=== PATIENT | female | born 2000 | race Caucasian/White ===

== ENCOUNTER 2019-11-30 14:54 | Emergency (ER) | payer SELFPAY ==
--- NOTE | 2019-11-30 15:06 | XRR_ITS ---
PROCEDURE INFORMATION: Exam: XR Chest, 1 View Exam date and time: 11/30/2019 3:07 PM Age: 19 years old Clinical indication: Cough; Additional info: Cough/congestion x 3 weeks TECHNIQUE: Imaging protocol: XR of the chest Views: 1 view. COMPARISON: CR Chest 2 views* [id number] 04/26/2017 4:30 PM FINDINGS: Lungs: Unremarkable. No consolidation. Pleural space: Unremarkable. No pleural effusion. No pneumothorax. Heart/Mediastinum: Unremarkable. No cardiomegaly. Bones/joints: Unremarkable. XR/XR chest 1V portable [id number] IMPRESSION: No acute findings.
--- NOTE | 2019-11-30 15:06 | ECG_ITS ---
Measurements Intervals [place] Rate: 82 P: 80 KS: 138 QRS: 80 QRSD: 89 T: 66 QT: 349 QTc: 409 SINUS RHYTHM WITH SINUS ARRHYTHMIA No previous ECG available for comparison Electronically Signed On 12-01-2019 14:11:42 CEMENTING BULK MATERIAL OPERATOR by Nurys Keene M.D. [email or web address]
[2019-11-30 15:55] VITALS: BP 124/84; PULSE 102; RESP 16; TEMP 36.8; O2SAT 99; BMI 16.5
[2019-11-30 18:44] LABS: Amphetamines Screen Urine Negative (Negative); Barbiturates Screen Urine Negative (Negative); Benzodiazepines Screen Urine Negative (Negative); Cocaine Screen Urine Negative (Negative); Opiate Screen Urine Negative (Negative); PCP Screen Urine Negative (Negative); THC Screen Urine Positive (Negative)
== END 2019-11-30 21:15 | disposition left against medical advice (07) ==
LOC: ER 16:38
PROVIDERS: Physician Assistant; Emergency Provider Family Medicine
DX: Z53.21 Procedure and treatment not carried out due to patient leaving prior to being seen by health care provider (principal)
CPT/HCPCS: 71045; 80307; 93005; 99281

== ENCOUNTER 2020-12-19 23:24 | Emergency (ER) | payer SELFPAY ==
[2020-12-19 23:30] VITALS: BP 113/87; PULSE 102; RESP 18; TEMP 36.8; O2SAT 98; BMI 19.5
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
[2020-12-20 01:04] VITALS: BP 100/85; PULSE 102; RESP 18; O2SAT 94
== END 2020-12-20 01:03 | disposition home or self-care (01) ==
PROVIDERS: Emergency Provider Emergency Medicine
DX: S09.8XXA Other specified injuries of head, initial encounter (principal); F17.210 Nicotine dependence, cigarettes, uncomplicated; Y04.2XXA Assault by strike against or bumped into by another person, initial encounter
CPT/HCPCS: 12345; 70450; 99281; 99282

== ENCOUNTER 2021-04-10 09:27 | Emergency (ER) | payer SELFPAY ==
[2021-04-10 10:04] VITALS: BP 135/77; PULSE 133; RESP 18; TEMP 36.2; O2SAT 95; BMI 17.2
[2021-04-10 10:31] LABS: Add Urine Microscopic? YES; Bilirubin Urine Neg (Negative); Blood Urine Neg (Negative); Glucose Urine UA Norm (Normal); Ketones Urine Negative (Negative); Leukocyte Esterase Urine 2+ (Negative); Nitrate Urine Negative (Negative); Protein Urine Neg (Negative); Specific Gravity, Urine 1.005 (1.005-1.030); Urine Appearance SL Hazy (CLEAR); Urine Color Yellow (Yellow); Urobilinogen Urine Norm (Negative); pH Urine 5 (5-7)
[2021-04-10 10:38] LABS: Bacteria Urine 4+ /hpf; RBC Urine 0-4 /hpf (0-2); Squamous Epithelial Cell Urine 0-4 /hpf (0-5); WBC Urine 15-25 /hpf (0-5)
[2021-04-10 10:39] LABS: Add Urine Culture? Yes
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
[2021-04-10 11:25] LABS: Glucose Point of Care 105 mg/dL (70-110)
[2021-04-10] MEDS: sodium chloride 0.9% 1,000 ML 999 ML IV (11:37)
[2021-04-10] MEDS: ondansetron 2 mg/ML SDV 2 mL 4 MG IVP (11:37)
[2021-04-10 11:39] VITALS: BP 136/84; PULSE 89; O2SAT 98
[2021-04-10 11:41] LABS: Basophils # 0.1 10^3/uL (0.0-0.1); Basophils % 0.6 %; Eosinophils % 0.2 %; Hematocrit 42.2 % (37.0-47.0); Hemoglobin 14.3 g/dL (11.5-15.3); Lymphocytes # 2.2 10^3/uL (0.8-4.8); Mean Corpuscular HGB Conc 33.9 g/dL (30.0-36.0); Mean Corpuscular Hemoglobin 30.6 pg (28.0-34.0); Mean Corpuscular Volume 90.2 fL (81-99); Mean Platelet Volume 9.6 fL (7.4-10.4); Neutrophils % 71.9 %; Nucleated Red Blood Cells % 0 %; Platelet Count 340 10^3/cmm (130-400); Red Blood Count 4.68 10^6/uL (4.1-5.3); White Blood Count 11.8 10^3/uL (4.0-10.0)
[2021-04-10 11:52] LABS: HCG, Serum Qual Positive (Negative)
[2021-04-10 11:57] LABS: Lactic Sepsis W/Reflex 3.6 mmol/L (0.5-2.2)
[2021-04-10 12:00] VITALS: BP 134/101; PULSE 125; RESP 18; O2SAT 94
[2021-04-10 12:01] LABS: Alanine Aminotransferase 15 U/L (0-33); Albumin Level 4.6 g/dL (3.5-5.2); Alkaline Phosphatase 54 IU/L (35-105); Anion Gap 18.7 (5-19); Aspartate Amino Transferase 17 U/L (0-32); Blood Urea Nitrogen 8 mg/dL (6-20); Calcium 8.6 mg/dL (8.5-10.5); Carbon Dioxide 23 mmol/L (22-29); Chloride 101 mmol/L (98-107); Globulin 3.2 g/dL (1.3-4.6); Glomerular Filtration Rate 155.7 mL/min (90-130); Glucose 96 mg/dL (65-115); Osmolality Calculated 286 mOsm/kg (285-295); Potassium 3.7 mmol/L (3.5-5.1); Sodium 139 mmol/L (136-145); Total Bilirubin 0.3 mg/dL (0.15-1.2); Total Protein 7.8 g/dL (6.6-8.7)
[2021-04-10 13:00] VITALS: BP 133/77; PULSE 132; RESP 20; O2SAT 98
[2021-04-10 13:18] LABS: Lactic Sepsis W/Reflex 3.4 mmol/L (0.5-2.2)
[2021-04-10 13:24] LABS: Reflex Lactate Order REFLEX LACTIC ORDERD
[2021-04-10 14:00] VITALS: BP 123/45; PULSE 101; O2SAT 97
[2021-04-10 14:43] LABS: Reflex Lactate Order REFLEX LACTIC ORDERD
--- NOTE | 2021-04-11 14:12 | DCPLANNER ---
manager respiratory had message to speak with patient about services at [facility]. manager respiratory called phone number [phone], unable to speak with patient at this time, a voicemail was left for patient to return corrections caseworker phone call.
== END 2021-04-10 13:53 | disposition home or self-care (01) ==
PROVIDERS: Emergency Provider Physician Assistant
DX: O23.41 Unspecified infection of urinary tract in pregnancy, first trimester (principal); Z3A.01 Less than 8 weeks gestation of pregnancy; O26.891 Other specified pregnancy related conditions, first trimester; R45.86 Emotional lability; O99.331 Smoking (tobacco) complicating pregnancy, first trimester; F17.290 Nicotine dependence, other tobacco product, uncomplicated
CPT/HCPCS: 36416; 80053; 81001; 82962; 83605; 84702; 84703; 85025; 87077; 87086; 87186; 87491; 87591; 96361; 96374; 99284; J2405; J7030

== ENCOUNTER 2021-12-03 16:56 | Inpatient (IN) | payer MEDICAID, SELFPAY ==
[2021-12-03] VITALS (47 sets, daily range): BP systolic 102–150; BP diastolic 56–100; PULSE 53–104; RESP 16–17; TEMP 36.2–37.4; BMI 23.0
[2021-12-03 12:30] LABS: Basophils % 0.4 %; Eosinophils # 0.2 10^3/uL (0.0-0.8); Eosinophils % 2.4 %; Hematocrit 32.5 % (37.0-47.0); Hemoglobin 10.7 g/dL (11.5-15.3); Lymphocytes # 1.1 10^3/uL (0.8-4.8); Mean Corpuscular HGB Conc 32.9 g/dL (30.0-36.0); Mean Corpuscular Hemoglobin 26.6 pg (28.0-34.0); Mean Corpuscular Volume 80.8 fl (81-99); Monocytes # 0.9 10^3/uL (0.2-0.9); Monocytes % 11.7 %; Neutrophils % 69.7 %; Nucleated Red Blood Cells % 0 %; Platelet Count 309 10^3/cmm (130-400); Red Blood Count 4.02 10^6/uL (4.1-5.3); Red Cell Distribution Width 13.3 % (12.1-15.1); White Blood Count 7.6 10^3/uL (4.0-10.0)
[2021-12-03] MEDS: fentaNYL 50 mcg/mL INJ 2mL IVP (13:04)
[2021-12-03] MEDS: ondansetron 2 mg/ML SDV 2 mL 4 MG IVP (13:04)
[2021-12-03 14:01] LABS: Amphetamines Screen Urine Negative (Negative); Barbiturates Screen Urine Negative (Negative); Benzodiazepines Screen Urine Negative (Negative); Cocaine Screen Urine Negative (Negative); Opiate Screen Urine Negative (Negative); PCP Screen Urine Negative (Negative); THC Screen Urine Positive (Negative)
--- NOTE | 2021-12-03 14:21 | P.ANESASSM_ITS ---
Pre-Anesthetic Assessment Pre-Anesthetic Assessment: Height/Weight: Height 1.6 m Weight 58.967 kg Resp 17 12/03/21 13:04 Familial anesthetic complications: None Was Beta Jean Carlos taken within 24 hours: N/A Was Clonidine taken within 24 hours: N/A Last intake: Full stomach Social: Social History: Tobacco Exam: Pre-Anes Outpt Exam: alert, oriented x 3, clear to auscultation bilatera lly and regular rate & rhythm Airway: Submandibular: WNL Cervical ROM: WNL MP: 1 Dentition: Chipped Pulmonary: Pulmonary: None reported CV/HEM: CV/HEM: None reported : : None reported Hepatic: Hepatic: None reported GI: GI: None reported Metabolic: Metabolic: None reported Musc/skel: Musc/skel: None reported Neuropsych: Neuropsych: None reported Anesthetic Plan: ASA status: 2 Anesthesia: Anesthesia Evaluation and Regional (specify below) Other: We discussed risk of hypotension, back pain bruising, PDPH, catastrophic nerve injury including paralysis, infection, bleeding. Patient consenst to labor epidural. Risk of > 500 ml blood loss (7ml/kg in children): No Meds/Allergies Current Medications: Current Medications Generic Name Dose Route Start Last Admin Trade Name Freq PRN Reason Stop Dose Admin Fentanyl 25 - 100 mcg 12/03/21 11:37 12/03/21 13:04 Fentanyl 50 Mcg/ Ml Inj 2ml IVP 25 mcg Q1H PRN Administration SEVERE PAIN Ondansetron HCl 4 mg 12/03/21 11:37 12/03/21 13:04 Ondansetron 2 Mg /Ml Sdv 2 Ml IVP 4 mg Q4H PRN Administration NAUSEA AND VOMITI NG PFSH Anesthesia PFSH: Social History Smoking and tobacco status: current every day smoker e-cigarettes Alcohol intake: current Alcohol intake frequency: 0-2 Drinks per Day Female Reproductive History: Date of last menstrual period: 03/06/21 : 2 Data Anesthesia CBC & Chem 7: 12/03/21 11:33 Other Labs: Laboratory Results - last 48 hr 12/03/21 12/03/21 11:33 11:55 WBC 7.6 RBC 4.02 L Hgb 10.7 L Hct 32.5 L MCV 80.8 L MCH 26.6 L MCHC 32.9 RDW 13.3 Plt Count 309 MPV 11.0 H Neut % (Auto) 69.7 Lymph % (Auto) 15.0 [place] % (Auto) 11.7 Eos % (Auto) 2.4 Baso % (Auto) 0.4 Neut # (Auto) 5.30 Lymph # (Auto) 1.1 [place] # (Auto) 0.9 Eos # (Auto) 0.2 Baso # (Auto) 0.0 Nucleated RBC % (auto) 0 Nucleated RBCs # 0.0 Urine Opiates Screen Negative Ur Barbiturates Screen Negative Ur Phencyclidine Scrn Negative Ur Amphetamines Screen Negative U Benzodiazepines Scrn Negative Urine Cocaine Screen Negative U Marijuana (THC) Screen Positive H Cardiac Studies: No Data to Display
--- NOTE | 2021-12-03 14:55 | ANES.PROC ---
Anesthesia Procedures Procedure/Date: 12/03/21 Epidural: Time Out Performed: Yes ([id number]) Consents Signed: Procedure Consent Consent: from patient Lumbar Level: L4-L5 Epidural position: sitting Epidural procedure: sterile prep of area (Chloraprep), 1% lidocaine to numb the area, 18 g needle, negative for paresthesia passed, neg for paresthesia, test dose given, 1.5% xylocaine 1:200k epi, placed PCEA, no systemic response, sterile dressing applied and 0.2% Ropiavacaine @ mls/hr (12 ml/hour) Additional Comments: After informed consent, patient sat up, time out. Skin prepped and draped in usual fashion. Skin wheel w/ LA, Tuohy w/ stylet ligament engaged, JAROCHO w/ saline, loss at 4 cm. Stylet removed, catheter threaded to 10 cm. Negative aspiration, negative test dose. Good block, tolerated well. 0.2% ropivacaine started at 13 ml/hour.
[2021-12-03] MEDS: dextrose 5%-lactated ringers 1,000 ML 125 ML IV (15:01)
--- NOTE | 2021-12-03 16:24 | PM.OPHPUD ---
Labor & Delivery H&P Update Date of Procedure: December 03, 2021 Date H&P Performed: 12/03/21 Admission Diagnosis: Active labor Related Problem List Diagnoses (1) with 39 completed weeks gestation: (2) Active labor at term:
--- NOTE | 2021-12-03 16:25 | P.PN_ITS ---
SOFTWARE IMPLEMENTATION SPECIALIST Subjective Subjective: Interval history: The patient is feeling some pressure but she is much more comfortable with the epidural. This has been in place for approximately an hour. Labor: Station: 0 Amniotic Membrane Status: Bulging Vitals/I&O/Wt Last Vital Signs Temp 99.0 F 12/03/21 16:18 Pulse 61 12/03/21 16:14 Resp 17 12/03/21 13:04 BP 108/56 12/03/21 16:14 Weight last 48 hrs Weight 58.967 kg Physical Exam Narrative: EXAM NARRATIVE: SVE 6 cm 100%effaced 0 station. AROM performed with clear fluid. Urinary Catheter Management^: Chen: Cath Placed During This Visit: yes Urinary Catheter Date of Insertion: 12/03/21 Urinary Catheter Time of Insertion: 15:15 Data : 12/03/21 11:33 A&P Assessment and plan (1) Active labor at term: Continue expectant management Status: Acute (2) with 39 completed weeks gestation: Status: Acute Attestations Medical Necessity Statement*: Active labor with expectant managment Coding Level of Care Code Acute Front End Specialist for Chg Fwd Diagnoses Active labor at term with 39 completed weeks gestation Z3A.39
[2021-12-03 16:30] LABS: Adenovirus Not Detected (NOT DETECT); Chlamydia Pneumoniae Not Detected (NOT DETECT); Coronavirus 229E,HKU1,NL63,OC4 Not Detected (NOT DETECT); Human Metapneumovirus Not Detected (NOT DETECT); Human Rhinovirus/Enterovirus Not Detected (NOT DETECT); Influenza A Not Detected (NOT DETECT); Influenza A H1 Not Detected (NOT DETECT); Influenza A H1-2009 Not Detected (NOT DETECT); Influenza A H3 Not Detected (NOT DETECT); Influenza B Not Detected (NOT DETECT); Mycoplasma Pneumoniae Not Detected (NOT DETECT); Parainfluenza Virus Type 1 Not Detected (NOT DETECT); Parainfluenza Virus Type 2 Not Detected (NOT DETECT); Parainfluenza Virus Type 3 Not Detected (NOT DETECT); Parainfluenza Virus Type 4 Not Detected (NOT DETECT); Respiratory Syncytial Virus A Not Detected (NOT DETECT); Respiratory Syncytial Virus B Not Detected (NOT DETECT); SARS-COV-2 Detected (NOT DETECT)
--- NOTE | 2021-12-03 17:00 | PM.MISC ---
Miscellaneous Note Purpose of Documentation: Evaluation of epidural Note: Called to bedside for leaking epidural. At bedside epidural leaking around clamshell connector. In line epidural pump filter left in place, epidural yellow filter removed, w/ sterile technique epidural catheter re affixed w/in clamshell connector. Patient having significant discomfort from urinary cathete and right sided pain. Epidural catheter bolused off pump 10 cc.. Patient checked. +1 and 6 and 100%
[2021-12-03] MEDS: oxytocin 30 UNIT/500 ML BAG 500 UNIT IV (19:34)
--- NOTE | 2021-12-03 19:53 | PM.DELIVERY ---
Delivery Note: Date of delivery: December 03, 2021 Pre-Delivery Course: She had routine care at [facility]. She did have marijuana use during and is positive on today's drug screen. There were no other complications during the . Delivery: This is a 21-year-old G2, P1 at 39 weeks 0 days gestation who presented to labor and delivery in active labor. She received an epidural for pain management. She had artificial rupture of membranes with clear fluid. She was GBS negative. Rupture membranes was approximately 3 hours prior to delivery. She had a normal spontaneous vaginal delivery of a viable male infant weight 3120 g, 6 pounds 14 ounces over an intact perineum. The infant was suctioned at delivery and placed on the mother's chest. The cord was clamped and cut. The placenta was delivered grossly intact and normal to inspection. There were no lacerations. Estimated blood loss 150 mL. Mother and were doing well after delivery. A&P Assessment and plan (1) Normal spontaneous vaginal delivery: Routine care Status: Acute (2) Lab test positive for detection of COVID-19 virus: The patient's COVID screening test today is positive. She has been placed on contact precautions. Status: Acute Coding Level of Care Code Acute Marshmallow Runner [facility] Diagnoses Normal spontaneous vaginal delivery O80 Lab test positive for detection of COVID-19 virus U07.1
[2021-12-03] MEDS: ibuprofen 800 mg tablet PO (21:47)
[2021-12-03] MEDS: lanolin oint 7 gm 1 APPLIC TOPICAL (21:48)
[2021-12-03] MEDS: benzocaine-menthol 78 gm Canister 1 SPRAY TOPICAL (21:48)
[2021-12-04] VITALS (10 sets, daily range): BP systolic 114–135; BP diastolic 57–82; PULSE 49–71; TEMP 36.2–37.2
[2021-12-04 08:40] LABS: Hematocrit 28.9 % (37.0-47.0); Hemoglobin 9.3 g/dL (11.5-15.3); Mean Corpuscular HGB Conc 32.2 g/dL (30.0-36.0); Mean Corpuscular Hemoglobin 25.9 pg (28.0-34.0); Mean Corpuscular Volume 80.5 fl (81-99); Platelet Count 246 10^3/cmm (130-400); Red Blood Count 3.59 10^6/uL (4.1-5.3); Red Cell Distribution Width 13.3 % (12.1-15.1); White Blood Count 11.2 10^3/uL (4.0-10.0)
[2021-12-04] MEDS: prenatal vitamin Capsule 1 CAP PO (10:23)
[2021-12-04] MEDS: ibuprofen 800 mg tablet PO ×2 (10:23→15:12)
[2021-12-04] MEDS: docusate sodium 100 mg Capsule PO (10:23)
--- NOTE | 2021-12-04 14:05 | ANE.PACU2 ---
Inpatient post-anesthesia follow up: Airway intact: Yes Vital signs: Temperature 98.2 F Pulse Rate 71 Respiratory Rate 16 Blood Pressure 118/77 Pulse Oximetry Oxygen Delivery Me thod Room Air Oxygen Flow Rate Fraction of Inspir ed Oxygen Hydration adequate: Yes Nausea and vomiting: No Pain level: 2 Mental status: Baseline
--- NOTE | 2021-12-04 18:36 | P.DS_ITS ---
Discharge Providers TITLE COORDINATOR Date of Admission: 12/03/21 16:56 Date of Discharge: 12/04/21 Attending Provider at Admission: Erin Berkowitz MD Attending Provider at Discharge: Erin Berkowitz MD Diagnoses at Discharge Discharge Diagnosis (1) Normal spontaneous vaginal delivery: Status: Acute (2) Lab test positive for detection of COVID-19 virus: Status: Acute Reason for Visit Reason for Visit: labor Hospital Course Hospital Course This is a 21-year-old G2 now P2 who was admitted to labor and delivery in active labor. She had a term normal male infant. After delivery mother did well. She was ambulating, tolerating a regular diet, had average vaginal bleeding and was comfortable with discharge home. Information Peripartum Data: Infant Delivery Method: Vaginal Physical Exam Narrative: EXAM NARRATIVE: Alert and oriented, sitting up in bedside chair, lungs clear to auscultation, heart regular rate and rhythm, abdomen soft, fundus firm and nontender, no extremity tenderness, no extremity edema. Urinary Catheter Management^: Chen: Cath Placed During This Visit: yes, but has since been removed by the nurse Reason for Continuing Indwelling Catheter: Decision to DC Catheter Urinary Catheter Date of Insertion: 12/03/21 Urinary Catheter Time of Insertion: 15:15 Date Urinary Catheter Removed: 12/03/21 Time Urinary Catheter Discontinued: 19:15 Discharge Data Data Completed and Pending: Labs from last 24 hours 12/04/21 07:45 WBC 11.2 H RBC 3.59 L Hgb 9.3 L Hct 28.9 L MCV 80.5 L MCH 25.9 L MCHC 32.2 RDW 13.3 Plt Count 246 MPV 11.0 H Vitals: Last Vital Signs Temp 97.9 F 12/04/21 15:15 Pulse 60 12/04/21 15:15 Resp 16 12/03/21 20:20 BP 122/81 12/04/21 15:15 Discharge Plan Discharge Patient Disposition: Home Condition: Stable Discharge Orders: Discharge Order (Routine); Ordered 12/04/21 Ordered By: Erin Berkowitz Referrals: Erin Berkowitz MD [Physician] - 1 month Discharge Diet: Usual diet Discharge Activity: Limit activity as instructed Patient Instructions: Depression (DC), Bleeding (DC), Preeclampsia and Eclampsia After Delivery (GEN), Vaginal Delivery (DC), Hemorrhage (DC), OB Discharge Report, OB Food/Drug Interaction Guide, Opioid Safety, OB Home Care, OB Proud Parent Packet Discharge Attestations TITLE COORDINATOR Time Spent in Discharge Care*: less than 30 min Coding Level of Care Code Acute Clinical Haematologist for Chg Fwd Diagnoses Normal spontaneous vaginal delivery O80 Lab test positive for detection of COVID-19 virus U07.1
== END 2021-12-04 20:42 | disposition home or self-care (01) | DRG 805 ==
LOC: OBGYN 16:57
PROVIDERS: Admitting Provider Family Medicine; Visit Provider Family Medicine
DX: O98.52 Other viral diseases complicating childbirth (principal); U07.1 COVID-19; Z37.0 Single live birth; Z3A.39 39 weeks gestation of pregnancy
CPT/HCPCS: 36415; 51702; 59409; 80306; 85025; 85027; 87635; J2405; J2795; J3010

== ENCOUNTER 2022-02-18 04:39 | Emergency (ER) | payer MEDICAID, SELFPAY ==
[2022-02-18 05:03] VITALS: RESP 20; TEMP 36.8; BMI 21.2
--- NOTE | 2022-02-18 05:12 | ED_ITS ---
HPI - General Adult General: Chief complaint: General Medical Stated complaint: n/v Time Seen by Provider: 02/18/22 04:44 Source: patient Mode of arrival: ambulatory Limitations: no limitations History of Present Illness: 21-year-old female states that she has had nausea vomiting over the last 12 hours. States she had multiple episodes of vomiting states she is not really able to keep anything down. She denies any diarrhea states she has some abdominal cramping denies any abdominal pain she denies any fevers. Denies any worsening improving factors. Associated symptoms: Reports nausea and vomiting; Deny chest pain, dyspnea, headache(s) or rash Review of Systems Const: Denies: fever(s), chills, body aches or change in appetite Eyes: Denies: blurry vision or eye discomfort ENMT: Denies: throat pain or dental pain Card: Denies: chest pain Resp: Denies: dyspnea GI: Reports: nausea and vomiting : Denies: dysuria Musc: Denies: neck pain or back pain Skin/Breast: Denies: rash Neuro: Denies: headache(s) Psych: Denies: depression Girish/Lymph: Denies: easy bruising All/Imm: Denies: urticaria PFSH ED PFSH: Medical History (Updated 02/18/22 @ 05:47 by Charisse Boyd MD) No pertinent past medical history Social History Smoking and tobacco status: current every day smoker e-cigarettes Alcohol intake: current Alcohol intake frequency: 0-2 Drinks per Day Female Reproductive History: Date of last menstrual period: 03/06/21 Physical Exam Const: COMMON NORMALS: no acute distress, patient oriented x3 and healthy appearing HENMT: COMMON NORMALS: normocephalic and atraumatic HEAD & SCALP: normocephalic and atraumatic Eye: COMMON NORMALS: Equal, round and reactive pupils present and EOMs intact bilaterally PUPIL: Yes Equal, round and reactive pupils present Neck/C-Spine: COMMON NORMALS: full ROM and supple Chest: COMMONS NORMALS: normal inspection of the chest and normal palpation of entire chest wall Resp: COMMON NORMALS: normal respiratory effort, No retractions, No use of accessory muscles and clear to auscultation bilaterally AUSCULTATION: clear to auscultation bilaterally Cardio: COMMON NORMALS: regular rate, regular rhythm and No murmurs present (Cardio) RATE: regular rate RHYTHM: regular rhythm GI: COMMON NORMALS: Normal to inspection, nondistended, normoactive bowel kim nds present, Soft to palpation, non-tender and no masses PALPATION: Yes Soft to palpation Extremity: COMMON NORMALS: normal to inspection and full ROM Neuro: COMMON NORMALS: patient oriented x3, moves all extremities and no focal motor deficits Psych: COMMON NORMALS: mental status grossly normal, Normal thought process present and cooperative THOUGHT PROCESS: Normal thought process present Skin: COMMON NORMALS: no rashes or lesions noted and no wounds GENERAL SKIN EXAM: no rashes or lesions noted Course Vital Signs: Vital signs: Vital Signs Temperature 98.2 F 02/18/22 05:03 Pulse Rate 85 02/18/22 06:20 Respiratory Rate 16 02/18/22 06:20 Blood Pressure 122/59 02/18/22 06:20 Pulse Oximetry 98 02/18/22 06:20 [facility] - General Adult Medical Decision Making Patient presents here with vomiting likely viral in origin. She is well- appearing here blood work is normal she feels much improved after IV fluids and Zofran her abdominal exam is benign no signs of acute surgical abdomen she is stable for discharge is to follow-up with PCP and return if worsening. Lab Data : 02/18/22 05:12 02/18/22 05:12 Laboratory Results WBC 8.9 10^3/uL (4.0-10.0) 02/18/22 05:12 RBC 4.97 10^6/uL (4.1-5.3) 02/18/22 05:12 Hgb 13.8 g/dL (11.5-15.3) 02/18/22 05:12 Hct 42.7 % (37.0-47.0) 02/18/22 05:12 MCV 85.9 fl (81-99) 02/18/22 05:12 MCH 27.8 pg (28.0-34.0) L 02/18/22 05:12 MCHC 32.3 g/dL (30.0-36.0) 02/18/22 05:12 RDW 15.4 % (12.1-15.1) H 02/18/22 05:12 Plt Count 292 10^3/cmm (130-400) 02/18/22 05:12 MPV 10.5 fL (7.4-10.4) H 02/18/22 05:12 Neut % (Auto) 57.8 % 02/18/22 05:12 Lymph % (Auto) 27.6 % 02/18/22 05:12 [place] % (Auto) 10.1 % 02/18/22 05:12 Eos % (Auto) 3.4 % 02/18/22 05:12 Baso % (Auto) 0.9 % 02/18/22 05:12 Neut # (Auto) 5.16 10^3/uL (1.8-7.7) 02/18/22 05:12 Lymph # (Auto) 2.5 10^3/uL (0.8-4.8) 02/18/22 05:12 [place] # (Auto) 0.9 10^3/uL (0.2-0.9) 02/18/22 05:12 Eos # (Auto) 0.3 10^3/uL (0.0-0.8) 02/18/22 05:12 Baso # (Auto) 0.1 10^3/uL (0.0-0.1) 02/18/22 05:12 Nucleated RBC % (auto) 0 % 02/18/22 05:12 Nucleated RBCs # 0.0 /100WBC 02/18/22 05:12 Sodium 136 mmol/L (136-145) 02/18/22 05:12 Potassium 3.1 mmol/L (3.5-5.1) L 02/18/22 05:12 Chloride 97 mmol/L (98-107) L 02/18/22 05:12 Carbon Dioxide 24 mmol/L (22-29) 02/18/22 05:12 Anion Gap 18.1 (5-19) 02/18/22 05:12 BUN 12 mg/dL (6-20) 02/18/22 05:12 Creatinine 0.7 mg/dL (0.5-0.9) 02/18/22 05:12 GFR Calculation 104.6 mL/min (90-130) 02/18/22 05:12 Glucose 91 mg/dL (65-115) 02/18/22 05:12 Calculated Osmolality 281 mOsm/kg (285-295) L 02/18/22 05:12 Calcium 9.7 mg/dL (8.5-10.5) 02/18/22 05:12 Total Bilirubin 1.0 mg/dL (0.15-1.2) 02/18/22 05:12 AST 35 U/L (0-32) H 02/18/22 05:12 ALT 33 U/L (0-33) 02/18/22 05:12 Alkaline Phosphatase 81 IU/L (35-105) 02/18/22 05:12 Total Protein 7.5 g/dL (6.6-8.7) 02/18/22 05:12 Albumin 5.0 g/dL (3.5-5.2) 02/18/22 05:12 Globulin 2.5 g/dL (1.3-4.6) 02/18/22 05:12 Lipase 17 U/L (13-60) 02/18/22 05:12 HCG, Qual Negative (Negative) 02/18/22 05:12 Discharge Plan Discharge Patient Disposition: Home Clinical Impression: Vomiting Qualifiers: Vomiting type: unspecified Nausea presence: with nausea Qualified Code(s): R11.2 - Nausea with vomiting, unspecified Condition: Stable Prescriptions: New ondansetron 4 mg tablet,disintegrating 4 mg PO Q6H PRN (Reason: nausea and vomiting) Qty: 14 0RF Discharge Orders: Discharge ED (Routine); Ordered 02/18/22 Ordered By: Charisse Boyd Referrals: Erin Berkowitz MD [Primary Care Provider] - 1-3 days Discharge Diet: Advance as tolerated Discharge Activity: Resume usual activity Patient Instructions: Acute Nausea and Vomiting (ED) Coding Level of Care Code ED Corporate Sales Trainer for Chg Fwd Exam Comprehensive
[2022-02-18 05:18] VITALS: BP 135/85; PULSE 87; RESP 16; O2SAT 98
[2022-02-18] MEDS: ondansetron 2 mg/ML SDV 2 mL 4 MG IVP (05:18)
[2022-02-18] MEDS: sodium chloride 0.9% 1,000 ML 999 ML IV (05:18)
[2022-02-18 05:21] LABS: Basophils # 0.1 10^3/uL (0.0-0.1); Basophils % 0.9 %; Eosinophils # 0.3 10^3/uL (0.0-0.8); Eosinophils % 3.4 %; Hematocrit 42.7 % (37.0-47.0); Hemoglobin 13.8 g/dL (11.5-15.3); Lymphocytes # 2.5 10^3/uL (0.8-4.8); Lymphocytes % 27.6 %; Mean Corpuscular HGB Conc 32.3 g/dL (30.0-36.0); Mean Corpuscular Hemoglobin 27.8 pg (28.0-34.0); Mean Corpuscular Volume 85.9 fl (81-99); Mean Platelet Volume 10.5 fL (7.4-10.4); Monocytes # 0.9 10^3/uL (0.2-0.9); Monocytes % 10.1 %; Neutrophils # 5.16 10^3/uL (1.8-7.7); Neutrophils % 57.8 %; Nucleated Red Blood Cells % 0 %; Platelet Count 292 10^3/cmm (130-400); Red Blood Count 4.97 10^6/uL (4.1-5.3); Red Cell Distribution Width 15.4 % (12.1-15.1); White Blood Count 8.9 10^3/uL (4.0-10.0)
[2022-02-18 05:41] LABS: Alanine Aminotransferase 33 U/L (0-33); Alkaline Phosphatase 81 IU/L (35-105); Anion Gap 18.1 (5-19); Aspartate Amino Transferase 35 U/L (0-32); Blood Urea Nitrogen 12 mg/dL (6-20); Calcium 9.7 mg/dL (8.5-10.5); Carbon Dioxide 24 mmol/L (22-29); Chloride 97 mmol/L (98-107); Globulin 2.5 g/dL (1.3-4.6); Glomerular Filtration Rate 104.6 mL/min (90-130); Glucose 91 mg/dL (65-115); Lipase 17 U/L (13-60); Osmolality Calculated 281 mOsm/kg (285-295); Potassium 3.1 mmol/L (3.5-5.1); Sodium 136 mmol/L (136-145); Total Protein 7.5 g/dL (6.6-8.7)
[2022-02-18 05:46] LABS: HCG, Serum Qual Negative (Negative)
[2022-02-18 06:20] VITALS: BP 122/59; PULSE 85; RESP 16; O2SAT 98
== END 2022-02-18 06:24 | disposition home or self-care (01) ==
PROVIDERS: Emergency Provider Emergency Medicine; PCP Family Medicine
DX: R11.2 Nausea with vomiting, unspecified (principal); F17.290 Nicotine dependence, other tobacco product, uncomplicated
CPT/HCPCS: 80053; 83690; 84703; 85025; 96361; 96374; 99283; J2405; J7030

== ENCOUNTER 2023-07-14 07:55 | Emergency (ER) | payer MEDICAID, SELFPAY ==
--- NOTE | 2023-07-14 07:58 | XR_ITS ---
WS: [id number] EXAMINATION: XR hand RT min 3V* [id number] REASON FOR EXAM: trauma COMPARISON: None available. ORDER DATE: 07/14/2023 7:59 AM FINDINGS: There is an acute angulated fracture of the distal to mid aspect of the fifth metacarpal. T here is adjacent soft tissue swelling. 1 cm simple bone cyst in the proximal second metacarpal. IMPRESSION: Acute fifth metacarpal fracture.
[2023-07-14 08:01] VITALS: BP 120/78; PULSE 127; RESP 20; O2SAT 98
--- NOTE | 2023-07-14 08:02 | XR_ITS ---
WS: [id number] EXAMINATION: XR wrist RT min 3V* [id number] REASON FOR EXAM: trauma COMPARISON: Other recent studies ORDER DATE: 07/14/2023 8:04 AM FINDINGS: There is no sign of any acute osseous or articular abnormality. There are no specific soft tissue abn ormalities. IMPRESSION: No acute osseous change at the wrist. Previously noted acute fifth metacarpal fracture
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
--- NOTE | 2023-07-14 08:33 | DCPLANNER ---
Addendum entered by Myranda Hassan 07/14/23 14:41: senior operations manager received the following message from the ortho clinic regarding follow up appointment: tried to call number in chart - the person who answered stated there was no [place]. tried also Mom and Grandma in emergency contacts not working numbers - will try to mail a letter to address in chart - if anyone calls on this we can get her in tomorrow w/ dr gonsalez or squeeze on next week Original Note: senior operations manager had message to schedule a follow up appointment for patient with ortho. senior operations manager sent patients information to the front office staff at ortho. Patients information will be printed and reviewed. Clinic will call patient with appointment information.
[2023-07-14 08:38] VITALS: BP 120/78; PULSE 63; RESP 18; TEMP 36.8; O2SAT 98
[2023-07-14 08:40] VITALS: BP 120/78; PULSE 63; RESP 18; TEMP 36.8; O2SAT 98
== END 2023-07-14 08:41 | disposition home or self-care (01) ==
PROVIDERS: Emergency Provider Family Medicine; PCP Family Medicine
DX: S62.306A Unspecified fracture of fifth metacarpal bone, right hand, initial encounter for closed fracture (principal); Y04.0XXA Assault by unarmed brawl or fight, initial encounter
CPT/HCPCS: 29125; 73110; 73130; 99283

== ENCOUNTER → 2023-09-01 10:17 | Outpatient (BNVA) | payer MEDICAID, SELFPAY | PROVIDERS: PCP Family Medicine; Visit Provider Physician Assistant | DX: S62.306A Unspecified fracture of fifth metacarpal bone, right hand, initial encounter for closed fracture (principal); Y04.2XXA Assault by strike against or bumped into by another person, initial encounter | CPT/HCPCS: 73130 ==

== ENCOUNTER 2024-06-09 07:27 | Emergency (ER) | payer MEDICAID, SELFPAY ==
[2024-06-09 07:42] VITALS: BP 127/65; PULSE 72; TEMP 36.5; O2SAT 97; BMI 18.6
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
== END 2024-06-09 08:27 | disposition home or self-care (01) ==
PROVIDERS: Emergency Provider Family Medicine; PCP Family Medicine
DX: S01.112A Laceration without foreign body of left eyelid and periocular area, initial encounter (principal); F17.290 Nicotine dependence, other tobacco product, uncomplicated; Y04.2XXA Assault by strike against or bumped into by another person, initial encounter; T74.11XA Adult physical abuse, confirmed, initial encounter; Y07.030 Male partner, current, perpetrator of maltreatment and neglect
CPT/HCPCS: 12013; 99283

== ENCOUNTER 2024-12-10 21:45 | Emergency (ER) | payer MEDICAID, SELFPAY ==
[2024-12-10 22:05] VITALS: BP 115/69; PULSE 89; RESP 14; TEMP 36.7; O2SAT 99; BMI 18.6
== END 2024-12-11 00:39 | disposition left against medical advice (07) ==
PROVIDERS: Emergency Medicine; Emergency Provider Family Medicine; PCP Family Medicine
DX: Z53.21 Procedure and treatment not carried out due to patient leaving prior to being seen by health care provider (principal)
CPT/HCPCS: 36415; 84702

== ENCOUNTER 2025-10-03 11:10 | Emergency (ER) | payer MEDICAID, SELFPAY ==
[2025-10-03 11:11] VITALS: BP 137/85; PULSE 105; RESP 16; TEMP 36.6; O2SAT 100; BMI 18.6
[2025-10-03 11:25] LABS: Hematocrit 36.5 % (36-47); Hemoglobin 11.70 g/dL (11.27-16.99); Mean Corpuscular HGB Conc 32.1 g/dL (30-55); Mean Corpuscular Hemoglobin 29.5 pg (27-33); Mean Corpuscular Volume 91.9 fl (85-98); Nucleated Red Blood Cells % 0 %; Platelet Count 316 10^3/cmm (157-399); Red Blood Count 3.97 10^6/uL (3.85-5.65); White Blood Count 13.45 10^3/uL (3.29-11.43)
--- NOTE | 2025-10-03 11:32 | ECG_ITS ---
[facility] Date: 2025-10-03 Pat Name: Lisandra George Department: Room: Gender: Female Observer Electrical Prospecting: : 2000 Requested By: Uli Haskins Order Number: [id number] Mireille MD: Corey Colón M.D. Measurements Intervals [place] Rate: 82 P: 73 GA: 123 QRS: 76 QRSD: 70 T: 49 QT: 317 QTc: 372 Interpretive Statements SINUS RHYTHM Compared to ECG 11/30/2019 16:21:54 EARLY REPOLARIZATION NO LONGER PRESENT Electronically Signed On 10-04-2025 20:23:57 CLAIMS ASSISTANT by Corey Colón M.D. [email or web address]
--- NOTE | 2025-10-03 11:32 | ED_ITS ---
HPI - Dental/Oral 2 General: Chief complaint: Dental/Oral Stated complaint: DENTAL Time Seen by Provider: 10/03/25 11:11 History of Present Illness: 25-year-old female who presents to the e mergency room with complaints of bleeding has been persistent after extraction of teeth. She reports she had 5 teeth removed had bleeding all through the night she has no history of any blood dyscrasias or Abnormal platelets per the patient's recollection. She is not on any anticoagulants does not regularly use any NSAIDs. Associated symptoms: Denies fever(s) Related Data Previous Rx's ?Medication ?Instructions ?Recorded ondansetron 4 mg disintegrating 4 mg PO Q6H PRN nausea and 02/18/22 tablet vomiting #14 tabs Allergies Allergy/AdvReac Type Severity Reaction Status Date / Time No Known Allergies Allergy Verified 06/09/24 07:50 Review of Systems 2 Const: Denies: fever(s) or chills Card: Denies: chest pain Resp: Denies: dyspnea GI: Denies: abdominal pain : Denies: dysuria, urinary frequency or urinary urgency Musc: Denies: neck pain or back pain Skin/Breast: Denies: rash PFSH ED 2 PFSH: Medical History No pertinent past medical history Social History Smoking and tobacco/nicotine status: current every day tobacco/nicotine user e- cigarettes Alcohol intake: current Alcohol intake frequency: 0-2 Drinks per Day Substance/Drug Use: current Physical Exam 2 Const: COMMON NORMALS: no acute distress GENERAL APPEARANCE: cooperative and comfortable ORIENTATION/CONSCIOUSNESS: Yes awake, Yes oriented to person, Yes oriented to place and Yes oriented to time HENMT: COMMON NORMALS: normocephalic, atraumatic and hearing grossly normal bilaterally HEAD & SCALP: normocephalic and atraumatic TEETH & GINGIVA IMAGES: 1. 2. 3. 4. 5. 6. 7. 8. OTHER: Extracted teeth as marked in the diagram above no active bleeding there is clot in each of them. Resp: COMMON NORMALS: normal respiratory effort, No retractions, No use of accessory muscles and clear to auscultation bilaterally AUSCULTATION: clear to auscultation bilaterally Cardio: COMMON NORMALS: regular rate, regular rhythm and No murmurs present (Cardio) RATE: regular rate RHYTHM: regular rhythm GI: COMMON NORMALS: Soft to palpation and No hepatosplenomegaly present A USCULTATION: Yes normoactive bowel sounds PALPATION: Yes Soft to palpation, No Tenderness to palpation present (GI), No Guarding due to palpation present (GI) and Yes No hepatosplenomegaly present Extremity: COMMON NORMALS: normal to inspection, capillary refill normal, no clubbing, cyanosis or edema, no calf tenderness and no pedal edema Neuro: SENSORIUM/ORIENTATION: Yes oriented to person, Yes oriented to place and Yes oriented to time Skin: COMMON NORMALS: no rashes or lesions noted GENERAL SKIN EXAM: no rashes or lesions noted Course 2 Vital Signs: Vital signs: Vital Signs Temperature 97.9 F 10/03/25 11:11 Pulse Rate 82 10/03/25 13:04 Respiratory Rate 16 10/03/25 11:11 Blood Pressure 111/76 10/03/25 13:04 Pulse Oximetry 97 10/03/25 13:04 Oxygen Delivery Me thod Room Air 10/03/25 11:11 MDM - Dental/Oral Medical Decision Making No active bleeding when patient arrives here she is given TXA and TXA soaked gauze applied to the gums. Unfortunately the topical treatment mL made her nauseous and she threw up. She is not having any further active bleeding will discharge patient home continue wound packing at home and have her follow-up with her dentist. Hemoglobin stable and she is not tachycardic. Medical Records I reviewed the patient's medical records. Lab Data I reviewed the patient's lab results. 10/03/25 11:20 10/03/25 11:20 Laboratory Results WBC 13.45 10^3/uL (3.29-11.43) H 10/03/25 11:20 RBC 3.97 10^6/uL (3.85-5.65) 10/03/25 11:20 Hgb 11.70 g/dL (11.27-16.99) 10/03/25 11:20 Hct 36.5 % (36-47) 10/03/25 11:20 MCV 91.9 fl (85-98) 10/03/25 11:20 MCH 29.5 pg (27-33) 10/03/25 11:20 MCHC 32.1 g/dL (30-55) 10/03/25 11:20 RDW 12.7 % (12.1-15.1) 10/03/25 11:20 Plt Count 316 10^3/cmm (157-399) 10/03/25 11:20 MPV 10.4 fL (7.4-10.4) 10/03/25 11:20 Neut % (Auto) 75.8 % 10/03/25 11:20 Lymph % (Auto) 15.5 % 10/03/25 11:20 [place] % (Auto) 7.4 % 10/03/25 11:20 Eos % (Auto) 0.6 % 10/03/25 11:20 Baso % (Auto) 0.3 % 10/03/25 11:20 Neut # (Auto) 10.20 10^3/uL (1.8-7.7) H 10/03/25 11:20 Lymph # (Auto) 2.1 10^3/uL (0.8-4.8) 10/03/25 11:20 [place] # (Auto) 1.0 10^3/uL (0.2-0.9) H 10/03/25 11:20 Eos # (Auto) 0.1 10^3/uL (0.0-0.8) 10/03/25 11:20 Baso # (Auto) 0.0 10^3/uL (0.0-0.1) 10/03/25 11:20 Nucleated RBC % (auto) 0 % 10/03/25 11:20 Nucleated RBCs # 0.0 /100WBC 10/03/25 11:20 PT 14.60 SECONDS (12.1-14.9) 10/03/25 11:20 INR 1.07 (0.8-1.2) 10/03/25 11:20 APTT 31.3 SECONDS (23.9-36.7) 10/03/25 11:20 Sodium 139 mmol/L (136-145) 10/03/25 11:20 Potassium 4.4 mmol/L (3.5-5.1) 10/03/25 11:20 Chloride 107 mmol/L (98-107) 10/03/25 11:20 Carbon Dioxide 20 mmol/L (22-29) L 10/03/25 11:20 Anion Gap 16.4 (5-19) 10/03/25 11:20 BUN 27 mg/dL (6-20) H 10/03/25 11:20 Creatinine 0.5 mg/dL (0.5-0.9) 10/03/25 11:20 GFR Calculation 149.1 mL/min (90-130) H 10/03/25 11:20 Glucose 102 mg/dL (65-115) 10/03/25 11:20 Calculated Osmolality 293 mOsm/kg (285-295) 10/03/25 11:20 Calcium 9.1 mg/dL (8.5-10.5) 10/03/25 11:20 No radiology studies performed this visit Discharge Plan Discharge Patient Disposition: Home Clinical Impression: Bleeding post tooth extraction Condition: Stable Prescriptions: No Action ondansetron 4 mg tablet,disintegrating 4 mg PO Q6H PRN (Reason: nausea and vomiting) Qty: 14 0RF Discharge Orders: Discharge ED (Routine); Ordered 10/03/25 Ordered By: Uli Tavarez Referrals: Erin Berkowitz MD [Primary Care Provider, Family Practice] Discharge Diet: Clear Liquid Discharge Activity: Increase activity as tolerated Patient Instructions: Opioid Safety, Pain Management, Patient Portal & Shaun Instructions Activity Restrictions/Additional Instructions: Thank you for choosing [facility] for your healthcare needs today. It is very important that you follow up as instructed or that you return to the Emergency Department should you have concerns or if your condition changes or worsens in any way. Emergency department visits are focused on emergent conditions, in some cases you may require further evaluation on an outpatient basis. You were seen in the emergency room with bleeding from several tooth extractions. You are given medication both IV and topically to stop the bleeding. Recommend that you follow your dentist instructions and follow-up with them tomorrow. Your laboratory test show your hemoglobin is still stable at this point. You should maintain a clear liquid diet for the next 24 to 48 hours. (Please note that included in your discharge packet is information concerning opioid safety and pain management. This information is given to all patients were discharged from the ER regardless of their discharge diagnosis or the medicines they usually take or are prescribed.) Print Language: Swedish Coding Level of Care Code ED [employer] Machine Assembler for Shirley Pérez
[2025-10-03 11:36] LABS: INR 1.07 (0.8-1.2); Prothrombin Time 14.60 SECONDS (12.1-14.9)
[2025-10-03 11:37] LABS: Partial Thromboplastin Time 31.3 SECONDS (23.9-36.7)
[2025-10-03] MEDS: tranexamic acid 1,000 MG/100 ML PREMIX 600 MG IV (11:41)
[2025-10-03] MEDS: tranexamic acid 1,000 mg/10mL SDV 1000 MG XX (11:41)
[2025-10-03] MEDS: pantoprazole 40 mg SDV IVP (12:02)
[2025-10-03] MEDS: ondansetron 2 mg/ML SDV 2 mL 4 MG IVP (12:02)
[2025-10-03 12:06] VITALS: BP 105/59; PULSE 86; O2SAT 100
[2025-10-03 12:36] LABS: Anion Gap 16.4 (5-19); Blood Urea Nitrogen 27 mg/dL (6-20); Calcium 9.1 mg/dL (8.5-10.5); Carbon Dioxide 20 mmol/L (22-29); Chloride 107 mmol/L (98-107); Glucose 102 mg/dL (65-115); Osmolality Calculated 293 mOsm/kg (285-295); Potassium 4.4 mmol/L (3.5-5.1); Sodium 139 mmol/L (136-145)
[2025-10-03 13:04] VITALS: BP 111/76; PULSE 82; O2SAT 97
== END 2025-10-03 13:07 | disposition home or self-care (01) ==
PROVIDERS: Emergency Provider Family Medicine; PCP Family Medicine
DX: K91.840 Postprocedural hemorrhage of a digestive system organ or structure following a digestive system procedure (principal); F17.290 Nicotine dependence, other tobacco product, uncomplicated
CPT/HCPCS: 80048; 85025; 85610; 85730; 93005; 96365; 96375; 99284; J2405; J2470; J9999